=== PATIENT | female | born 1985 | race Caucasian/White ===

== ENCOUNTER 2018-03-12 19:19 | Inpatient (IN) | payer BC ==
[~2018-03-12] VITALS: Ht 162.6 cm; Wt 60.5 kg
[2018-03-12 19:55] VITALS: BP 183/104
[2018-03-12 20:03] LABS: BASOPHIL (%) 0.3 % (0-1); EOSINOPHIL (%) 0.8 % (0-5); EOSINOPHIL COUNT 0.1 K/uL (0-0.3); HEMATOCRIT 33.9 % (36.0-46.0); HEMOGLOBIN 11.5 G/DL (11.9-15.5); IMMATURE GRANULOCYTE (%) 0.8 % (0.0-0.7); LYMPHOCYTE (%) 23.1 % (15-42); LYMPHOCYTE COUNT 2.3 K/uL (1.0-2.8); MCH 29.4 PG (29.0-34.0); MCHC 33.9 G/DL (30.0-36.0); MCV 86.7 FL (83-99); MONOCYTE (%) 6.6 % (3-12); MONOCYTE COUNT 0.7 K/uL (0-0.8); NEUTROPHIL (%) 68.4 % (45-76); NEUTROPHIL COUNT 6.8 K/uL (1.8-6.4); PLATELET COUNT 269 K/uL (156-360); RBC DIS.WIDTH-CV 13.6 % (11.8-14.6); RED BLOOD COUNT 3.91 M/uL (3.80-5.20); WHITE BLOOD COUNT 9.9 K/uL (4.1-10.2)
[2018-03-12 20:07] VITALS: BP 170/101
[2018-03-12 20:10] LABS: INTER. NORMALIZED RATIO 0.9
[2018-03-12 20:12] LABS: PTT 24.4 SEC (25-37)
[2018-03-12 20:14] LABS: FIBRINOGEN 632 mg/dL (150-450)
[2018-03-12 20:28] LABS: ALBUMIN 3.3 G/DL (3.2-4.8); ALKALINE PHOSPHATASE 145 IU/L (3-129); ALT (GPT) 11 IU/L (3-49); AST (GOT) 15 IU/L (2-34); CHLORIDE 107 MEQ/L (99-109); CREATININE 0.7 MG/DL (0.6-1.3); GFR ESTIMATE (CALCULATED) > 59 mL/min/; GLUCOSE 77 mg/dL (70-99); LACTATE DEHYDROGENASE 160 IU/L (20-246); POTASSIUM 3.9 MEQ/L (3.7-5.4); SODIUM 137 MEQ/L (136-147); TOTAL BILIRUBIN 0.2 MG/DL (0.0-1.0); TOTAL PROTEIN 7.1 G/DL (6.4-8.3); UREA NITROGEN (BUN) 10 mg/dL (9-23); URIC ACID 7.1 mg/dL (3.1-9.2)
[2018-03-12 20:31] LABS: APPEARANCE SL.HAZY ((CLEAR)); BILIRUBIN NEGATIVE; BLOOD NEGATIVE; COLOR STRAW ((YELLOW)); GLUCOSE (STRIP) NEGATIVE; KETONES NEGATIVE; LEUKOCYTES LARGE; NITRITE NEGATIVE; PROTEIN (STRIP) NEGATIVE; SPECIFIC GRAVITY 1.003 (1.000-1.030); UROBILINOGEN 0.2 MG/DL (0.2-1.0)
[2018-03-12 20:44] LABS: AMPHETAMINE NEGATIVE (500 ng/mL); BARBITURATES NEGATIVE (200 ng/mL); BENZODIAZEPINES NEGATIVE (150 ng/mL); BUPRENORPHINE NEGATIVE (10 ng/mL); COCAINE NEGATIVE (150 ng/mL); METHADONE NEGATIVE (200 ng/mL); METHAMPHETAMINE NEGATIVE (500 ng/mL); OPIATES (MORPHINE) NEGATIVE (100 ng/mL); OXYCODONE NEGATIVE (100 ng/mL); PHENCYCLIDINE NEGATIVE (25 ng/mL); PROPOXYPHENE NEGATIVE (300 ng/mL); THC CANNABINOIDS NEGATIVE (50 ng/mL); TRICYCLIC ANTIDEPRESSANTS NEGATIVE (300 ng/mL)
[2018-03-12 20:52] LABS: BACTERIA RARE /HPF; EPITHELIAL CELLS 1+ /HPF; MUCUS TRACE /LPF; RED BLOOD CELLS 0-5 /HPF (0-5); UCUL ADDED? YES; WHITE BLOOD CELLS 30-40 /HPF (0-5)
[2018-03-12 21:01] VITALS: BP 145/96
[2018-03-12 21:10] VITALS: BP 138/92
[2018-03-12 21:50] VITALS: BP 134/89
[2018-03-12 22:08] LABS: UR CREATININE CONCENTRATION 24.5 MG/DL
[2018-03-12 22:47] VITALS: BP 140/88
[2018-03-13] VITALS (27 sets, daily range): BP systolic 121–161; BP diastolic 61–95
[2018-03-14] VITALS (50 sets, daily range): BP systolic 117–198; BP diastolic 58–104
[2018-03-15] VITALS (12 sets, daily range): BP systolic 105–150; BP diastolic 55–92
[2018-03-15 06:18] LABS: BASOPHIL (%) 0.1 % (0-1); EOSINOPHIL (%) 0 % (0-5); IMMATURE GRANULOCYTE (%) 1.2 % (0.0-0.7); LYMPHOCYTE (%) 13.2 % (15-42); LYMPHOCYTE COUNT 1.8 K/uL (1.0-2.8); MCH 30.2 PG (29.0-34.0); MCHC 33.5 G/DL (30.0-36.0); MCV 90.3 FL (83-99); MONOCYTE (%) 5.7 % (3-12); MONOCYTE COUNT 0.8 K/uL (0-0.8); NEUTROPHIL (%) 79.8 % (45-76); NEUTROPHIL COUNT 11.1 K/uL (1.8-6.4); NRBC (%) 0.2 /100 WBC (0-0); PLATELET COUNT 201 K/uL (156-360); RBC DIS.WIDTH-SD 46.3 % (39-53); WHITE BLOOD COUNT 13.9 K/uL (4.1-10.2)
[2018-03-15 06:22] LABS: RED BLOOD COUNT 2.88 M/uL (3.80-5.20)
[2018-03-15 06:23] LABS: HEMOGLOBIN 8.7 G/DL (11.9-15.5)
[2018-03-15 06:42] LABS: ALBUMIN 2.4 G/DL (3.2-4.8); ALT (GPT) 14 IU/L (3-49); AST (GOT) 18 IU/L (2-34); CHLORIDE 102 MEQ/L (99-109); CREATININE 0.9 MG/DL (0.6-1.3); GFR ESTIMATE (CALCULATED) > 59 mL/min/; POTASSIUM 4.3 MEQ/L (3.7-5.4); SODIUM 133 MEQ/L (136-147); TOTAL BILIRUBIN 0.2 MG/DL (0.0-1.0); UREA NITROGEN (BUN) 13 mg/dL (9-23)
[2018-03-15 06:43] LABS: ALKALINE PHOSPHATASE 98 IU/L (3-129); GLUCOSE 107 mg/dL (70-99)
[2018-03-16 01:21] VITALS: BP 159/80
[2018-03-16 01:42] VITALS: BP 158/80
[2018-03-16 05:33] VITALS: BP 140/73
[2018-03-16 11:18] VITALS: BP 161/82
[2018-03-17] VITALS (9 sets, daily range): BP systolic 127–154; BP diastolic 74–100
[2018-03-18 01:53] VITALS: BP 132/79
[2018-03-18 07:25] VITALS: BP 156/94
[2018-03-18] MEDS ORDERED: NIFEDIPINE ER60 MG PO (10:09)
[2018-03-18] MEDS ORDERED: IBUPROFEN800 MG PO (10:09)
[2018-03-18] MEDS ORDERED: CHROMAGEN,1 CAPSULE PO (10:09)
[2018-03-18] MEDS ORDERED: ENDOCET 5-3251 EACH PO (10:09)
[2018-03-18 10:30] VITALS: BP 153/80
[2018-03-18 11:20] VITALS: BP 140/80
== END 2018-03-18 12:20 | disposition home or self-care (01) | DRG 765 ==
LOC: LDRP-OP 19:19 → 2WEST 19:20 → LDRP-OP 05-12 15:56
PROVIDERS: Obstetrics & Gynecology
DX: O76 Abnormality in fetal heart rate and rhythm complicating labor and delivery (principal); O14.14 Severe pre-eclampsia complicating childbirth; O69.81X0 Labor and delivery complicated by cord around neck, without compression, not applicable or unspecified; O99.02 Anemia complicating childbirth; D62 Acute posthemorrhagic anemia; D50.9 Iron deficiency anemia, unspecified; O99.214 Obesity complicating childbirth; E66.9 Obesity, unspecified; Z68.29 Body mass index [BMI] 29.0-29.9, adult; Z3A.36 36 weeks gestation of pregnancy; Z37.0 Single live birth
CPT/HCPCS: 76805; 80053; 81003; 82570; 83615; 83735; 84156; 84550; 85025; 85384; 85610; 85730; 86850; 86900; 86901; 87077; 87081; 87086; 87186; 88307; G0378; J0360; J0690; J0702; J2274; J2405; J2540; J3010; J3475; J7120